=== PATIENT | female | born 1980 ===

== ENCOUNTER 2023-06-06 11:32 | Outpatient (OUT) | payer OTHER, SELFPAY ==
--- NOTE | 2023-06-06 11:50 | XR_ITS ---
The [address] [address] Patient Name: JOHN PAUL VAZQUEZ MRN: [id number] date: 1980 Sex: F Assigned Patient Location: [facility] Current Patient Location: [facility] Accession/Order Number: [id number] Exam Date: 06/06/2023 11:50 Report Date: 06/06/2023 15:20 At the request of: JOSEFINA WALSH Procedure: XR foot LT min 3V PROCEDURE: XR foot LT min 3V DATE: 06/06/2023 10:50 AM CDT COMPARISONS: None CLINICAL INDICATION: LEFT FOOT PAIN FINDINGS: There is no evidence of fractures or other osseous abnormalities. XR/XR foot LT min 3V IMPRESSION: Left foot radiographs show no evidence of abnormalities. Electronically authenticated by: MARIA TERESA MATT Date: 06/06/2023 15:20
== END 2023-06-06 11:33 | disposition home or self-care (01) ==
LOC: RAD 11:44
PROVIDERS: Visit Provider Podiatrist Foot & Ankle Surgery
DX: M79.672 Pain in left foot (principal)
CPT/HCPCS: 73630

== ENCOUNTER 2024-04-23 11:44 | Outpatient (OUT) | payer OTHER, SELFPAY ==
--- NOTE | 2024-04-23 | XR_ITS ---
The [address] [address] Patient Name: JOHN PAUL VAZQUEZ MRN: [id number] date: 1980 Sex: F Assigned Patient Location: Current Patient Location: Accession/Order Number: [id number] Exam Date: 04/23/2024 11:45 Report Date: 04/24/2024 09:24 At the request of: JOSEFINA WALSH Procedure: XR foot LT min 3V PROCEDURE: XR foot LT min 3V HISTORY: LEFT FOOT PAIN COMPARISON: XR foot left 06/06/2023 FINDINGS: BONES:No fracture, acute abnormality, or significant arthropathy. Minimal loss of plantar arch. SOFT TISSUES:No visible soft tissue swelling. EFFUSION:None visible. OTHER: Negative. XR/XR foot LT min 3V IMPRESSION: 1. No acute bone abnormality or significant degenerative joint disease. Electronically authenticated by: JOSEPHINE DE JESUS Date: 04/24/2024 09:24
== END 2024-04-23 11:45 | disposition home or self-care (01) ==
LOC: EC 11:44
PROVIDERS: Visit Provider Podiatrist Foot & Ankle Surgery
DX: M20.22 Hallux rigidus, left foot (principal)
CPT/HCPCS: 73630